=== PATIENT | female | born 1965 | race African-American/Black ===

== ENCOUNTER 2024-06-30 09:31 | Inpatient (IN) | payer MEDICARE, MEDICAID, SELFPAY ==
[2024-06-30] VITALS (13 sets, daily range): BP systolic 156–200; BP diastolic 113–141; PULSE 74–106; RESP 14–25; TEMP 36.3–36.8; O2SAT 92–98; BMI 18.8; BMI 19.0
--- NOTE | 2024-06-30 09:42 | EKG12_ITS ---
Test Reason : SOB Blood Pressure : / mmHG Vent. Rate : 084 BPM Atrial Rate : 084 BPM P-R Int : 164 ms QRS Dur : 096 ms QT Int : 418 ms P-R-T Axes : 075 -72 081 degrees QTc Int : 493 ms Normal sinus rhythm Biatrial enlargement Left axis deviation Minimal voltage criteria for LVH, may be normal variant ( Jefferson product ) Prolonged QT Abnormal ECG Confirmed by JESSICA LÓPEZ, BRENDA ([id number]), fan mail editor STAN WALL ([id number]) on 07/01/2024 1:25:24 PM Referred By: Confirmed By:BRENDA LOPEZ MD
--- NOTE | 2024-06-30 09:42 | RAD_ITS ---
STUDY: X-RAY CHEST REASON FOR EXAM: Female, 59 years old. chest pain TECHNIQUE: PA and lateral views of the chest. COMPARISON: None. FINDINGS: Hyperinflated cystic emphysematous lungs. Mild to moderate right lower lobe consolidation and a small pleural effusion is present. Old right-sided rib fractures noted. The remaining lung dangelo are clear. There is mild cardiac enlargement. Normal mediastinum and lakeisha. Normal visualized pulmonary arteries. There is atherosclerotic tortuosity of the aortic arch and descending thoracic aorta. There are diffuse degenerative changes of the visualized thoracic spine. There is no demonstrated abnormality of the visualized soft tissue structures of the upper abdomen. IVC filter partially visualized. RAD/Chest PA and Lateral IMPRESSION: 1. Right lower lobe pneumonia = Mild to moderate right lower lobe consolidation and a small pleural effusion is present. 2. This should be followed up to resolution to ensure no occult process is present. Electronically Signed: Robby Wallace MD at 11:59 EDT ,
--- NOTE | 2024-06-30 09:43 | EDS_ITS ---
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 According to EMS when they arrived found her to be hypoxic in the 78% range she is not chronically on oxygen according to them and the patient. Patient states that this morning she was complaining of shortness of breath and chest pain prompting them to come here for the valuation management. [facility] Medical History (Updated 06/30/24 @ 13:[address] Guru Roberts, DO) Schizoaffective disorder, bipolar type Difficulty walking Muscle weakness (generalized) DVT (deep venous thrombosis) Hemiplegia affecting right dominant side HTN (hypertension) COPD (chronic obstructive pulmonary disease) TIA (transient ischemic attack) Home Medications ?Medication ?Instructions ?Recorded ?Last Taken ?Type albuterol sulfate 90 mcg/actuation inhalation 06/30/24 Unknown History aerosol inhaler amlodipine 10 mg tablet 10 mg PO DAILY 06/30/24 Unknown History hydralazine 25 mg tablet 25 mg PO TID 06/30/24 Unknown History paliperidone palmitate 234 mg/1.5 mg IM 06/30/24 Unknown History mL intramuscular syringe (Invega Sustenna) rivaroxaban 20 mg tablet (Xarelto) 20 mg PO DAILY 06/30/24 Unknown History Allergy/AdvReac Type Severity Reaction Status Date / Time No Known Allergies Allergy Verified 06/30/24 09:33 Family History no significant family his Surgical History unable to obtain Social History (Updated 06/30/24 @ 09:54 by Jaleel Muse) housing: assisted living facility Smoking Status: Never smoker ROS ROS ED ROS Narrative Constitutional: Denies any headaches, lightness, dizziness, fevers, chills Eyes: Denies change in vision double vision blurry vision Cardiovascular: Complains of chest pain denies any palpitations Respiratory: Complains of shortness of breath as noted above denies coughing wheezing Abdomen: Denies abdominal pain nausea vomit diarrhea : Denies any urinary symptoms Neurological: Denies numbness, knees, tingling Musculoskeletal: Denies back pain Skin: Denies rashes or lesions EXAM Physical Exam Narrative Exam Narrative: General: Patient was lying in bed rest comfortably did not appear to be acute distress Head: Atraumatic, normocephalic Eyes: PERRL bilateral, EOMI bilateral, no conjunctival injection noted Neck: Soft, nondistended, nontender to palpation, bowel sounds present x 4 Cardiovascular: Regular in rhythm no murmurs gallops rubs noted Respiratory: Patient has diminished breath sounds bilaterally at the bases Abdomen: No tenderness palpation, soft, nondistended Extremities: No pedal edema on exam, radial pulses +2/4 in the bilateral upper extremities, patient has +4/5 strength noted in the left upper and lower extremity with +3/5 strength noted in the right upper and lower extremity from her previous stroke Neurological: Patient following commands knew that she was at a hospital the year was 2023 and we are in summer Skin: Warm, dry, intact Const Vital Signs: 06/30/24 09:33 06/30/24 09:39 06/30/24 09:41 Temperature 98.3 F 97.8 F Temperature Source Oral Oral Pulse Rate 94 98 Respiratory Rate 25 H 24 H Respiratory Effort Short of Breath Respiratory Depth Normal Respiratory Pattern Tachypnea Blood Pressure 186/126 H 186/126 H Blood Pressure Mean 146 146 Pulse Ox 94 95 Oxygen Delivery Method Nasal Cannula Nasal Cannula Nasal Cannula Oxygen Flow Rate (L/min) 3 3 3 06/30/24 09:42 06/30/24 10:38 06/30/24 11:32 Temperature Temperature Source Pulse Rate 101 H 88 Respiratory Rate 18 16 Respiratory Effort Respiratory Depth Respiratory Pattern Normal Blood Pressure 177/118 H Blood Pressure Mean 137 Pulse Ox 93 Oxygen Delivery Method Nasal Cannula Nasal Cannula Oxygen Flow Rate (L/min) 3 3 06/30/24 13:00 Temperature Temperature Source Pulse Rate 80 Respiratory Rate 24 H Respiratory Effort Respiratory Depth Respiratory Pattern Blood Pressure 178/122 H Blood Pressure Mean 140 Pulse Ox 98 Oxygen Delivery Method Nasal Cannula Oxygen Flow Rate (L/min) 3 MDM MDM MDM Narrative Medical decision making narrative: Patient is a 59-year-old female who presented to the emergency department with a chief complaint of chest pain and shortness of breath. Patient will do workup performed here on the differential diagnose includes but I limited to ACS, pneumonia, CHF, COPD exacerbation secondary viral etiology. Once workup is obtained reviewed she will be reevaluated. Will hold off on 30 cc/kg bolus of IV fluids secondary to her hypoxia and respiratory distress concern for CHF. Patient will be given DuoNebs. Patient's CBC reviewed and showed no evidence leukocytosis white blood count normal at 7.2, hemoglobin is 13.8, plate count normal at 211. Patient's blood gas was reviewed showed pH 7.35, CO2 of 36, sodium normal 141, potassium normal 3.8, creatinine normal at 0.72. Patient troponin normal at 12 with a delta troponin obtained at 8 and her EKG reviewed and showed sinus rhythm with a rate of 84 beats per minutes. Patient's proBNP normal at 28. Patient's chest x-ray was reviewed and concern for a right lower lobe pneumonia therefore she was given Rocephin and azithromycin. I did discuss results with the patient and patient Trying to rip off her oxygen which when she does this her oxygen level immediately desaturates to the upper 70s 80s. She is not normally on oxygen. Patient will be admitted to the hospital to Dr. López for further evaluation management. Patient did require Ativan and despite this she was continuing to rip off her medical devices in [place] therefore she was placed in soft restraints for her own benefit health and protection. Patient was then requiring Haldol be given. Patient states that she is agreeable with staying in the hospital however given her multiple attempts at getting up out of bed and ripping off the medical devices medical hold was placed. Nursing staff did attempt multiple times to contact her legal guardian which was unable to be contacted. Lab Data Labs: Laboratory Results - last 24 hr 06/30/24 06/30/24 09:55 13:07 WBC 7.2 RBC 4.61 Hgb 13.8 Hct 44.7 MCV 97.0 MCH 29.9 MCHC 30.9 L RDW Std Deviation 45.1 H RDW Coeff of Felipe 12.6 Plt Count 211 MPV 10.7 Immature Gran % (Auto) 0.100 Neut % (Auto) 78.5 H Lymph % (Auto) 11.2 L Emanuel % (Auto) 5.9 Eos % (Auto) 3.9 Baso % (Auto) 0.4 Absolute Neuts (auto) 5.7 Absolute Lymphs (auto) 0.81 L Nucleated RBC % 0 Sodium 141 Potassium 3.8 Chloride 105 Carbon Dioxide 36.0 H Anion Gap 0 L BUN 9 Creatinine 0.72 Estim Creat Clear Calc 75.56 Est GFR (MDRD) Af Amer 107 Est GFR (MDRD) Non-Af 88 BUN/Creatinine Ratio 12.5 Glucose 123 H Calcium 9.9 Troponin I High Sens 12 8 B-Natriuretic Peptide 28.4 ABG Data ABG results: ABG 06/30/24 10:17 Specimen Type ART Sample Site L Radial pH 7.35 Bicarbonate Actual 34.0 H Total CO2 36 Base Excess 8 H O2 Saturation 87 L O2 % 3.0 ABG pCO2 61.7 H ABG pO2 57 L Carlos A Test Positive O2 Delivery Device Cannula Vent Mode Not entered Radiography Diagnostic Testing: Clinical Impression(s) from Imaging Studies Chest X-Ray 06/30/24 09:42 IMPRESSION: 1. Right lower lobe pneumonia = Mild to moderate right lower lobe consolidation and a small pleural effusion is present. 2. This should be followed up to resolution to ensure no occult process is present. Electronically Signed: Robby Wallace MD at 11:59 EDT Reading Location ID and State: [address] [place] [address] , Service support , Discharge Plan Triage Chief Complaint: Shortness of Breath ED Provider: Guru Roberts Dx/Rx/DC Orders Clinical Impression: Pneumonia, Hypoxia Primary Care Provider: Lina Barajas Capacity Capacity Assessment Tool Patient lacks Decision Making Capacity: unable to understand, reason and deliberate health related choices: Yes Risk to self and or others?: Yes Risk of leaving the patient care unit and or hospital?: Yes Legal Technical Healthcare Consultant Define type of medical hold:: Hospital Imposed
--- NOTE | 2024-06-30 09:45 | NURSING ---
NO OLD EKGS
--- NOTE | 2024-06-30 09:51 | ED.RN ---
WHEN THIS NURSE ASKED PT IF SHE FELT SAFE AT HOME SHE APPEARED CONFUSED AND ASKED WHERE SHE LIVED. PT WAS TOLD SHE CAME FROM [facility] AND THE PT SAID I DON'T KNOW WHAT THAT IS AND I DON'T KNOW ANYTHING ABOUT ASSISTED LIVING.
[2024-06-30] MEDS: 0.9% Normal Saline (1000mL) 1,000 ML 150 ML IV (09:57)
[2024-06-30 10:03] LABS: Absolute Lymphocyte Count 0.81 X10^3/uL (0.83-4.51); Absolute Neutrophil Count 5.7 X10^3/uL (2.0-7.7); Basophil# 0.03 X10^3/uL; Basophil% 0.4 % (0-1); Eosinophil# 0.28 X10^3/uL; Eosinophils% 3.9 % (0-5); Hematocrit 44.7 % (37-47); Hemoglobin 13.8 g/dL (12.0-15.0); Lymphocyte # 0.81 X10^3/ul (0.83-4.51); Lymphocyte % 11.2 % (19-41); Mean Corp Hgb Conc 30.9 g/dL (32-36); Mean Corpuscular Hgb 29.9 pg (27.0-32.0); Mean Platelet Vol. 10.7 fl (6.2-12.0); Monocyte# 0.43 X10^3/uL; Monocyte% 5.9 % (0-10); NRBC Flagged by Analyzer 0 % (0-5); Neutrophil # 5.67 X10^3/uL (2.7-7.7); Neutrophil % 78.5 % (47-70); Platelet Count 211 K/mm3 (150-450); RBC Distribution Width CV 12.6 % (11.6-14.6); RBC Distribution Width SD 45.1 fl (35.1-43.9); Red Blood Count 4.61 M/mm3 (4.2-5.4); White Blood Count 7.2 K/mm3 (4.4-11.0)
[2024-06-30 10:21] LABS: Allen Test Positive; Base Excess 8 mmol/L (-2 to +2); Blood Gas Specimen Type ART; Mode Not entered; O2 Delivery Device Cannula; PO2 57 mmHG (75-100); SITE L Radial; SO2 87 % (95-99); Total Carbon Dioxide 36 mmol/L; pCO2 61.7 mmHg (35-45); pH 7.35 (7.35-7.45)
[2024-06-30 10:34] LABS: Anion Gap 0 (5-15); BUN 9 mg/dL (7-18); BUN/Creat Ratio 12.5 RATIO (10-20); Calcium,Total 9.9 mg/dL (8.5-10.1); Chloride 105 mmol/L (98-107); Creatinine, Serum 0.72 mg/dL (0.55-1.02); EST Glomerular Filtration Rate 88 mL/min (>60); Est Glom Filt Rate - Afr Amer 107 mL/min (>60); Estimated Creatinine Clearance 75.56 ml/min; Glucose 123 mg/dL (74-106); Potassium 3.8 mmol/L (3.5-5.1); Sodium Level 141 mmol/L (136-145); Troponin-I HS (w/2H Reflex) 12 pg/mL (3.0-54.0)
[2024-06-30] MEDS: Ipratropium/Albuterol Sulfate 3 ML AMPUL.NEB INHALATION ×3 (10:37→10:38)
[2024-06-30 10:43] LABS: BNP,B-Type NATRIURETIC PEPTIDE 28.4 pg/mL (0-100)
--- NOTE | 2024-06-30 10:43 | ED.RN ---
WHEN THIS NURSE ENTERED PT ROOM, PT OXYGEN WAS OFF AND ON THE BED. THIS NURSE BEGAN TO PUT O2 BACK ON PT AND PT STATES I WILL NOT WEAR THAT. PT REFUSING TO WEAR OXYGEN
[2024-06-30] MEDS: LORazepam 2 MG/ML Syringe 0.5 MG IV (11:23)
--- NOTE | 2024-06-30 11:57 | ED.RN ---
THIS RN ATTEMPTED TO CALL MOISÉS MELO AT 11:45 am =, i
[2024-06-30 11:59] LABS: Reflex Troponin-HS? (from REC) Y
--- NOTE | 2024-06-30 12:24 | ED.RN ---
ATTEMPTED TO CALL PT VALERIE HARVEY. NO ANSWER, NOT ABLE TO LEAVE A VOICEMAIL DUE TO FULL VOICEMAIL
[2024-06-30] MEDS: Haloperidol Lactate 5 MG/ML Vial 1 MG IV (12:29)
[2024-06-30] MEDS: Ceftriaxone 1 GM/50 ML BAG IV (12:30)
--- NOTE | 2024-06-30 12:41 | ED.RN ---
PT CONTINUES TO TRY AND TAKE HER OXYGEN AND MONITOR OFF. PT SCREAMING FOR HELP. WHEN THIS RN WALKS IN, PT AGITATED AND TRYING TO TAKE O2 OFF. PT STILL APPEARS CONFUSED, IS ORIENTED TO SELF BUT SAYS I AM FROM A DIFFERENT PLANET.
--- NOTE | 2024-06-30 13:20 | PCM.HP.STD ---
HPI - General General Date of Admission: 06/30/24 Date of Service: 06/30/24 Chief Complaint: Shortness of breath HPI Narrative ELOINA HAND, is a 59 F with history of schizoaffective disorder bipolar type, CVA, COPD, VTE, hypertension who presented to [facility] ED 06/30/2024 from [facility] unit for shortness of breath. History obtained per report as patient either unable or unwilling to discuss HPI and no family present at bedside. Reportedly patient had increased shortness of breath and cough and possible chest pain prompting her to come to the ED and was 78% on room air but it was unclear if she was on chronic O2 or not. She is found to have infiltrate on chest x-ray, raise concern for pneumonia so she was given Rocephin, azithromycin and DuoNebs. Hospitalist contacted for admission. In the interim patient was very agitated and combative and briefly required restraints and then had a as needed dose of Haldol and a as needed dose of Ativan which did help. Patient evaluated at bedside and was awake but would not answer questions. O2 sat 97% on 3 L and patient in no acute distress. Patient admitted to floor [facility] Medical History (Updated 06/30/24 @ 13:[address] Guru Roberts, DO) COPD (chronic obstructive pulmonary disease) Difficulty walking DVT (deep venous thrombosis) Hemiplegia affecting right dominant side HTN (hypertension) Muscle weakness (generalized) Schizoaffective disorder, bipolar type TIA (transient ischemic attack) Home Medications ?Medication ?Instructions ?Recorded ?Last Taken ?Type albuterol sulfate 90 mcg/actuation 2 puff inhalation TID sob 06/30/24 Unknown History aerosol inhaler amlodipine 10 mg tablet 10 mg PO DAILY bp 06/30/24 Unknown History hydralazine 25 mg tablet 25 mg PO TID bp 06/30/24 Unknown History mometasone-formoterol HFA 100 2 inh inhalation BID breathing 06/30/24 Unknown History mcg-5 mcg/actuation aerosol inhaler paliperidone palmitate 234 mg/1.5 234 mg IM Q28D schizoaffective 06/30/24 Unknown History mL intramuscular syringe (Invega disorder Sustenna) rivaroxaban 20 mg tablet (Xarelto) 20 mg PO .evening blood 06/30/24 Unknown History Allergy/AdvReac Type Severity Reaction Status Date / Time No Known Allergies Allergy Verified 06/30/24 09:33 Family History no significant family his Surgical History unable to obtain Social History (Updated 06/30/24 @ 09:54 by Jaleel Muse) housing: assisted living facility Smoking Status: Never smoker ROS ROS Narrative Unable to obtain ROS secondary to patient cooperation Vital Signs Vital Signs Vital Signs: 06/30/24 09:33 06/30/24 09:39 06/30/24 09:41 Temperature 98.3 F 97.8 F Temperature Source Oral Oral Pulse Rate 94 98 Respiratory Rate 25 H 24 H Respiratory Effort Short of Breath Respiratory Depth Normal Respiratory Pattern Tachypnea Blood Pressure 186/126 H 186/126 H Blood Pressure Mean 146 146 Pulse Ox 94 95 Oxygen Delivery Method Nasal Cannula Nasal Cannula Nasal Cannula Oxygen Flow Rate (L/min) 3 3 3 06/30/24 09:42 06/30/24 10:38 06/30/24 11:32 Temperature Temperature Source Pulse Rate 101 H 88 Respiratory Rate 18 16 Respiratory Effort Respiratory Depth Respiratory Pattern Normal Blood Pressure 177/118 H Blood Pressure Mean 137 Pulse Ox 93 Oxygen Delivery Method Nasal Cannula Nasal Cannula Oxygen Flow Rate (L/min) 3 3 06/30/24 13:00 Temperature Temperature Source Pulse Rate 80 Respiratory Rate 24 H Respiratory Effort Respiratory Depth Respiratory Pattern Blood Pressure 178/122 H Blood Pressure Mean 140 Pulse Ox 98 Oxygen Delivery Method Nasal Cannula Oxygen Flow Rate (L/min) 3 Weight Weight: 56.2 kg Body Mass Index (BMI) 18.8 Physical Exam Narrative General: Alert, but refused to answer questions HEENT: Atraumatic, normocephalic Eyes: Anicteric, normal conjunctiva, extraocular movements grossly intact Neck: Supple Respiratory: Normal respiratory effort, would not take deep breaths during exam but no overt wheezes, slightly coarse in right lower lobe Cardiovascular: Regular rate GI: Soft, nontender, nondistended Extremities: No edema Musculoskeletal: Moving extremities in bed Neuro: Did not participate in neuroexam Skin: No rashes appreciated Psych: Uncooperative Results Lab / Micro Data 06/30/24 09:55 06/30/24 09:55 Labs: Laboratory Results - last 24 hr 06/30/24 09:55: WBC 7.2, RBC 4.61, Hgb 13.8, Hct 44.7, MCV 97.0, MCH 29.9, MCHC 30.9 L, RDW Std Deviation 45.1 H, RDW Coeff of Felipe 12.6, Plt Count 211, MPV 10.7, Immature Gran % (Auto) 0.100, Neut % (Auto) 78.5 H, Lymph % (Auto) 11.2 L, [place] % (Auto) 5.9, Eos % (Auto) 3.9, Baso % (Auto) 0.4, Absolute Neuts (auto) 5.7, Absolute Lymphs (auto) 0.81 L, Nucleated RBC % 0, Sodium 141, Potassium 3.8, Chloride 105, Carbon Dioxide 36.0 H, Anion Gap 0 L, BUN 9, Creatinine 0.72, Estim Creat Clear Calc 75.56, Est GFR (MDRD) Af Amer 107, Est GFR (MDRD) Non-Af 88, BUN/Creatinine Ratio 12.5, Glucose 123 H, Calcium 9.9, Troponin I High Sens 12, B-Natriuretic Peptide 28.4 Micro: Microbiology 06/30/24 09:47 Mucosa - Nose SARS-CoV-2, Influenza & RSV (PCR) - Final ABG Data ABG results: ABG 06/30/24 10:17 Specimen Type ART Sample Site L Radial pH 7.35 Bicarbonate Actual 34.0 H Total CO2 36 Base Excess 8 H O2 Saturation 87 L O2 % 3.0 ABG pCO2 61.7 H ABG pO2 57 L Carlos A Test Positive O2 Delivery Device Cannula Vent Mode Not entered Imaging Radiology Impression Chest X-Ray 06/30/24 09:42 IMPRESSION: 1. Right lower lobe pneumonia = Mild to moderate right lower lobe consolidation and a small pleural effusion is present. 2. This should be followed up to resolution to ensure no occult process is present. Electronically Signed: Robby Wallace MD at 11:59 EDT , Assessment & Plan Assessment/Plan (1) Hypoxia: (2) Pneumonia: PLAN: Plan # Hypoxia suspect secondary to right lower lobe pneumonia on chronic COPD -No previous records available in our system, no family at bedside and patient not cooperative with questioning or exam -Unclear if patient is supposed to be on home O2 -Chest x-ray with right lower lobe pneumonia, recommends repeat imaging to assess for resolution or any other underlying process, will need to be followed up on an outpatient basis -Patient started on nebs and Rocephin and azithromycin and is presently 97% on 3 L -No wheezing, do not suspect patient needs steroids at this time, continue inhaled steroids -Urine antigens negative, COVID-negative, respiratory panel pending -Of note patient also with pCO2 of 61.7 on presenting ABG however patient's pH normal and has elevated bicarb suspect this is chronic and patient is combative and not cooperative but is alert and does not obtunded or tired or seem to have acute CO2 retention -Incentive spirometer -Mucinex # Agitation and history of reportedly schizoaffective disorder -Unclear baseline but patient of note is presently at a locked behavioral unit -Patient suspicious and agitated but is awake, not obtunded or lethargic -Is on Invega Sustenna on outpatient basis -UA WNL -Pt had pCO2 61.7 but elevated bicarb and normal pH, do not think this is acute retention causing mental status changes especially given pts level of alertness -Treat underlying respiratory process as above -Ativan prn, will avoid and redirect if possible #Hypertensive urgency -Resume home medications -Add losartan -Hydralazine PRN -May need further adjustments moving forward #Hx VTE -Continue xeralto #DVT ppx: Pari Osborn MD Time spent in the patient's overall evaluation,decision-making process, review of diagnostic data, adjustment of management, discussion with other providers, nursing nursing and ancillary staff involved in patient's care documentation, 58 minutes Charges/Coding Visit Charges Inpatient E&M: 13623 Init Hosp L2
[2024-06-30] MEDS: Azithromycin 500 MG in Dextrose 5%-Water (250mL Bag) 250 ML 250 MG IV (13:22)
[2024-06-30 13:36] LABS: Troponin-I HS 8 pg/mL (3.0-54.0)
--- NOTE | 2024-06-30 13:48 | ED.RN ---
AT 1258 PT REQUESTED RESTRAINTS TO COME OFF. PT AGREED TO KEEP OXYGEN ON AT THIS POINT.
--- NOTE | 2024-06-30 13:49 | ED.RN ---
PT PULLING AT LINES AND OXYGEN, NOT OBEYING COMMANDS. PT IS REFUSING CARE. PT PLACED BACK IN RESTRAINTS
--- NOTE | 2024-06-30 14:12 | ED.RN ---
PT REFUSING IV AND ANTIBIOTICS. PT AWARE OF MEDICAL HOLD. PT ACCUSATORY TOWARDS STAFF STATING WE DID THIS TO HER IN [place]. NEW IV INITIATED FOR ANTIBIOTICS.
--- NOTE | 2024-06-30 14:17 | ED.RN ---
THIS RN ATTEMPTED TO CALL PT'S GUARDIAN, CARLOS ELLINGTON AGAIN, NO ANSWER, UNABLE TO LEAVE A VOICEMAIL DUE TO IT BEING FULL.
--- NOTE | 2024-06-30 14:38 | CASEMGMT ---
Per SOWMYA at [facility], pt's legal guardian is her daughter and they last had contact with her 3wks ago. Patient was to discharge to community with her daughter/guardians supervision on Saturday but she did not pick her up. Pt resides in their locked behavioral unit. At , she has become obsessed with discharging and they believe she is being non-compliant with her O2 use as a way to get off the unit in hopes that she won't get sent back. Hospital , [facility], updated. SAM Romero Planning Asst.
[2024-06-30] MEDS: hydrALAZINE 25 MG Tablet PO (15:32)
[2024-06-30 15:35] LABS: Mucous, Urine 0 SEEN /hpf (<or=2+); Red Blood Cells-Urine 0 SEEN /hpf (0-5)
[2024-06-30] MEDS: hydrALAZINE 20 MG/ML Vial 5 MG IV (15:35)
[2024-06-30 15:40] LABS: Color, Urine Yellow (Yellow); Glucose, Dipstick Normal (Normal); Ketone-Dipstick Negative (Negative); Leukocyte Esterase-Dipstick Negative /ul (Negative); Nitrite-Dipstick Negative (Negative); Occult Blood-Urine Negative /ul (Negative); Protein-Dipstick Negative (Negative); Specific Gravity, Urine 1.015 (1.002-1.030); Urine Bilirubin Dipstick Negative (Negative); Urine Clarity Clear (Clear); Urine Urobilinogen Normal (Normal)
[2024-06-30 15:55] LABS: White Blood Cells 0-5 SEEN /hpf (0-5)
[2024-06-30 15:56] LABS: Bacteria RARE /hpf (None Seen); Squamous Epithelial Cells - UA 0-5 SEEN /hpf (5-10); Transitional Epithelial - Ur 0-5 SEEN /hpf (0-5)
--- NOTE | 2024-06-30 18:15 | NURSING ---
pt appears to be sleeping in bed. o2 tubing noted to be down below chin. this nurse attempted to place o2 tubing in pt nose. pt wakes-moves tubing back below chin and states leave me alone. this nurse explains why o2 is needed at this time. pt refusing to let this nurse check spo2. pt states i told you to leave me alone. will monitor.
--- NOTE | 2024-06-30 19:30 | NURSING ---
This RN went into pt's room to do an introduction and an assessment, pt awake in bed at this time. Pt sat up and told this RN that someone had told her earlier that staff would leave her alone and not bother her anymore. This RN explained to pt that staff will be in her room routinely to check on her. Pt laid back in bed and refused to answer anymore questions. This RN made sure bed alarm is on and call light is w/ pt. no further concerns at this time.
--- NOTE | 2024-06-30 20:24 | CPS ---
Patient refusing to wear oxygen and have pulse ox checked by PARENT TRAINER, RN notified
[2024-07-01 06:08] VITALS: BP 151/101; PULSE 105; RESP 18; O2SAT 92
--- NOTE | 2024-07-01 06:18 | NURSING ---
This RN attempted to talk patient into giving labs this morning. Pt IV became occluded when attempting to flush, so taken out at this time. When asked if pt would allow this RN to get another IV she refused. When asking if she would allow blood to be drawn she refused again.
[2024-07-01 07:08] VITALS: O2SAT 82
--- NOTE | 2024-07-01 07:09 | CPS ---
patient on room air, spo2 82%. She allowed this RT to put NC o2 at 2l NC but did remove on her own. Attempted to redirect patient and educate, without success.
--- NOTE | 2024-07-01 10:48 | CASEMGMT ---
Discharge Planning Updates sent to [facility] via [facility]. SAM Romero Planning Asst.
--- NOTE | 2024-07-01 11:00 | PCM.PN.HOSP ---
Reason for Visit Reason for Visit: Diagnoses Pneumonia, unspecified organism (06/30/24) Hypoxemia (06/30/24) Subjective Subjective Patient intermittently cooperative with vitals and oxygen overnight, this a.m. very resistant to any medications, vitals, exams. Was informed that patient's daughter/guardian would be coming today to see patient and for further discussion however when social work called to follow-up there was no answer and no return call. When I evaluated patient this a.m. she was sitting on the edge of the bed resting comfortably with no increased work of breathing, endorse that she did have some cough but when discussing pneumonia she was adamant that she did not have pneumonia and she was coughing because substances were being pumped into the room through the air vents in the ceilings and it was making her sick. She would not voice any other acute complaints other than some soreness which she attributes to being the ED yesterday and requiring restraints for short period of time. She remarked that she is not violent and does not need restrained, supportive care provided and agreed that she is presently not violent and that I am not attempting to or suggesting that restraints would be put on her at this time. Patient continues to reiterate that she wants to go home and said that her home is in [place], she could not tell me where she came from before this hospital became very angry and agitated before stating she came here from [facility] (she came from the behavioral unit at [facility]). While she is alert and able to answer some questions she is very suspicious and does not have an understanding of her current medical problems or the purpose of the interventions or the importance/relevance of them. Despite explaining this patient adamant that it is the hospital that is making her sick and that she does not have pneumonia and she is presently still not resistant to evaluation. Given she is not able to understand her medical problems, the risks or benefits of treatment, or appreciate the consequences of refusing treatment she does not presently have capacity at this time and medical hold will be continued. Given patient is in no acute distress or presently experiencing an acute imminently life-threatening problem and is not violent do not feel it is reasonable to sedate patient or restrain patient against her will to administer treatment. O2 sat checked in the afternoon was 93% on room air. If patient becomes hypoxic again and clinically deteriorates will need to reassess as additional measures may need to be taken to administer treatment. Presently stable. Given patient no longer has an IV her antibiotics have been switched to p.o., will encourage patient to take the p.o. medication. If patient continues to refuse to the point that it is actively and acutely negatively affecting her health and wellbeing may need to consider an IM option Objective Data Objective Data Vital Signs: Vital Signs Temp Pulse Resp BP Pulse Ox O2 Del Method O2 Flow Rate 97.3 F L 105 H 18 151/101 H 93 Room Air 2 06/30/24 21:05 07/01/24 06:08 07/01/24 06:08 07/01/24 06:08 07/01/24 16:26 07/01/24 16:26 07/01/24 06:08 Oxygen Flow Rate (L/min) 2 Oxygen Delivery Method Room Air Weight: 56.8 kg Body Mass Index (BMI) 19.0 Intake & Output: Intake and Output for Last 24 Hours 06/29/24 06/30/24 07/01/24 23:59 23:59 23:59 Intake Total 1007.5 / 1007.5 Output Total 400 / 400 Balance 607.5 / 607.5 Medical Nutrition Assessment Dietitian: Malnutrition Criteria Met Start: 07/01/24 15:51 Freq: Status: Active Protocol: Document 07/01/24 15:51 SB (Rec: 07/01/24 15:52 SB [id number]) Nutrition Malnutrition Evidence of Malnutrition Exists Yes Malnutrition (severe): Chronic Evidenced By Suboptimal Energy Intake ( Severe),Weight Loss (Severe), Physical Changes (Severe) Clinical Problem Chronic Disease or Condition Related Malnutrition Etiology severe related to inadequate oral/energy intake Signs/Symptoms as evidenced by severe wasting in clavicle and should region , PO intake meeting <50% of estimated energy needs x 1 month, recent 24.3% unintentional weight loss, and BMI 19.0. Status Active Problem Recommendation Dietitian Recommendations/Changes Continue regular diet. Will order 240ml strawberry ensure plus high protein BID with breakfast and dinner, to see if pt will be willing to consume if she sees it on try. Will order magic cup with lunch. Will monitor weight, as available. Reviewed and approved by Maddie Irwin, MS, RD, LD. Lab / Micro Data 06/30/24 09:55 06/30/24 09:55 Micro: Microbiology 06/30/24 15:25 Urine, Random Urine Culture - Preliminary Mixed Gram Positive Organisms 06/30/24 15:10 Mucosa - Nasopharyngeal Respiratory Panel (PCR) - Final 06/30/24 15:10 Mucosa - Nose Coronavirus COVID-19 PCR - Final 06/30/24 15:25 Urine, Random Legionella Antigen - Final 06/30/24 15:25 Urine, Random Streptococcus pneumoniae Antigen (M - Final 06/30/24 09:47 Mucosa - Nose SARS-CoV-2, Influenza & RSV (PCR) - Final Physical Exam Narrative General: Alert, no acute distress HEENT: Atraumatic, normocephalic Eyes: Anicteric, normal conjunctiva, extraocular movements grossly intact Neck: Supple Respiratory: Normal respiratory effort, patient refused physical exam Cardiovascular: Regular rate GI: Soft, nontender, nondistended Extremities: No edema Musculoskeletal: Moving all extremities Neuro: Has baseline deficits Skin: No rashes appreciated Psych: Suspicious and uncooperative Assessment & Plan Assessment/Plan (1) Hypoxia: (2) Pneumonia: PLAN: Plan # Hypoxia suspect secondary to right lower lobe pneumonia on chronic COPD -No previous records available in our system, no family at bedside and patient not cooperative with questioning or exam -Unclear if patient is supposed to be on home O2 -Chest x-ray with right lower lobe pneumonia, recommends repeat imaging to assess for resolution or any other underlying process, will need to be followed up on an outpatient basis -Patient started on nebs and Rocephin and azithromycin and is presently 97% on 3 L -No wheezing, do not suspect patient needs steroids at this time, continue inhaled steroids -Urine antigens negative, COVID-negative, respiratory panel pending -Of note patient also with pCO2 of 61.7 on presenting ABG however patient's pH normal and has elevated bicarb suspect this is chronic and patient is combative and not cooperative but is alert and does not obtunded or tired or seem to have acute CO2 retention -Incentive spirometer -Mucinex -07/01: Antibiotics switched to p.o. as patient refusing to have another IV placed, will encourage patient to take the p.o. antibiotics, oxygen check this afternoon showed an O2 sat of 93% on room air. See subjective for additional information. # Agitation and history of reportedly schizoaffective disorder -Unclear baseline but patient of note is presently at a locked behavioral unit -Patient suspicious and agitated but is awake, not obtunded or lethargic -Is on Invega Sustenna on outpatient basis -UA WNL -Pt had pCO2 61.7 but elevated bicarb and normal pH, do not think this is acute retention causing mental status changes especially given pts level of alertness -Treat underlying respiratory process as above -Ativan prn, will avoid and redirect if possible -07/01: Patient verbally combative and uncooperative however not presently violent, continue supportive care, unclear baseline, guardian was supposed to come in for discussion and to see patient but has not yet come and phone call was not answered and call not returned. If patient becomes medically stable will need to go back to the behavioral unit, maybe as soon as tomorrow. #Hypertensive urgency -Resume home medications -Add losartan -Hydralazine PRN -May need further adjustments moving forward -07/01: Patient not presently letting us check blood pressure, continue to gently encourage this and offer the p.o. medication, patient much less agitated outwardly today so BP may be lower than it was during acute agitation in the ED #Hx VTE -Continue xeralto #DVT ppx: Pari Osborn MD Time spent in the patient's overall evaluation,decision-making process, review of diagnostic data, adjustment of management, discussion with other providers, nursing nursing and ancillary staff involved in patient's care documentation, 45 minutes Charges/Coding Visit Charges Inpatient E&M: 67168 Subs Hosp L2
--- NOTE | 2024-07-01 12:46 | CASEMGMT ---
Patient's daughter/guardian Bettina called [facility] last night per the RN. Bettina plans on coming in today. will talk with Bettina to discuss d/c plan. Adriana LENZ
--- NOTE | 2024-07-01 13:41 | CASEMGMT ---
SOWMYA called patient's daughter/legal guardian Bettina and left her a voice mail requesting a return phone call. Adriana LENZ
[2024-07-01 16:26] VITALS: O2SAT 93
--- NOTE | 2024-07-01 16:33 | NURSING ---
Patient refusing focused assessment by this RN. Patient also refusing vitals. Pt did allow RN to obtain pulse ox, was 93% on room air. Patient continues to refuse all medications, as she states she does not have high blood pressure or pneumonia. notified.
--- NOTE | 2024-07-01 19:00 | NURSING ---
Emergency documentation now in effect, 07/01/24 @1010
[2024-07-01 19:10] VITALS: O2SAT 90
--- NOTE | 2024-07-02 02:00 | NURSING ---
RN introduced self, pt ignores RN, refused care/assistance.
--- NOTE | 2024-07-02 04:28 | NURSING ---
Pt refused blood pressure check, pulse 0x 88% on RA, pt refused to wear NC. RR 19, chest rise equal, no sob.
[2024-07-02 04:30] VITALS: PULSE 88; TEMP 36.6; O2SAT 88
[2024-07-02] MEDS: Amox/Clavulanate 875 MG Tablet PO (05:09)
[2024-07-02 05:11] VITALS: PULSE 81; O2SAT 97
--- NOTE | 2024-07-02 05:12 | NURSING ---
pt called out asking for her antibiotic, RN gave 1 tablet of PO Augmentin 875mg early per pt request. Refused other meds. Pt allowed RN to place 2L NC on, 02 sats 97% HR 81. Refused bp check.
[2024-07-02 07:49] VITALS: O2SAT 95
[2024-07-02 08:55] VITALS: BP 144/99; PULSE 89; RESP 18; TEMP 36.4; O2SAT 94
--- NOTE | 2024-07-02 09:19 | CASEMGMT ---
SW attempted to call patient's daughter Bettina. However, it went right to voice mail and the voice mail box is full. [facility]. The first time it went to a random voice mail with no identifying information, second time after 3rd ring there was static and then nothing, and the 3rd attempt phone rang a few times and then nothing. SW will try and talk with RN to see if he has heard anything from patient's daughter. SW will also notify physician that if patient is medically ready she can be discharged back to [facility]. SW will continue to try and reach patient's daughter Bettina as well as [facility]. Adriana Meyers STATIONARY EQUIPMENT MECHANIC DELFIN
--- NOTE | 2024-07-02 09:46 | CASEMGMT ---
SOWMYA called [facility] ([phone]) and asked to talk with someone regarding a guardian that cannot be reached. SW was transferred and went to a voice mail for a Sarah Randolph court field traffic investigator. SOWMYA left Sarah a voice mail requesting a return call regarding a patient who has a guardian that the senior living and hospital have not been able to reach (no identifying information was given). Await return call. SOWMYA also updated physician that patient if medically ready [facility]. SOWMYA also notified [facility] that patient will likely return today. Adriana Meyers SECONDARY SCHOOL SPECIAL ED TEACHER DELFIN
--- NOTE | 2024-07-02 10:13 | CASEMGMT ---
SOWMYA received a phone call from Sarah Randolph with [facility] [address] [facility]. SOWMYA explained situation and gave her patient's name. Sarah gave SOWMYA the address and contact information they have for Bettina. Which turns out to be different than what SOWMYA has. [facility] has [phone] for a phone number and address they have is [address] SOWMYA also told Sarah that SOWMYA wanted to make sure they were aware of the difficulty the fci and hospital have had reaching Bettina. Sarah told SOWMYA if SOWMYA is not able to reach Bettina via this new number and Bettina never gets back to SOWMYA to give her a call and let her know. SOWMYA will also pass along Sarah's information to [facility]. SOWMYA called [phone]. Phone rang several times then went to a voice mail with no identifying information. SOWMYA left a message indicating message is for Bettina and to please call SOWMYA back. SOWMYA did not leave any patient identifying information on the message. It should also be known that the phone number SOWMYA had originally ([phone]) called does identify it is Bettina's phone. Adriana Meyers YARN TEXTURING MACHINE OPERATOR SPIKEMAKING SUPERVISOR
--- NOTE | 2024-07-02 13:02 | PCM.TXEXTCAR ---
Diet Diet Order/Speech Therapy: 06/30/24 14:36 Diet: Regular - General Food consistency:: Regular Liquid Consistency:: Regular/Thin Type of Dietary Supplement:: Magic Cup w/ lunch Diet Comments: 240mL ensure plus HP strawberry w/ breakfast and dinner Routine Orders/Code Status Suppository Type: Dulcolax 10mg Suppository Frequency: Daily PRN O2 Liters per Minute: 2 O2 Frequency: PRN Problem/Diagnosis (1) Hypoxia: Status: Acute Code(s): R09.02 - Hypoxemia (2) Pneumonia: Status: Acute Code(s): J18.9 - Pneumonia, unspecified organism Plan # Hypoxia suspect secondary to right lower lobe pneumonia on chronic COPD # Agitation and history of reportedly schizoaffective disorder #Hypertensive urgency #Hx VTE ELOINA HAND, is a 59 F with history of schizoaffective disorder bipolar type, CVA, COPD, VTE, hypertension who presented to [facility] ED 06/30/2024 from [facility] for shortness of breath. She had an infiltrate on chest x-ray and was found to be hypoxic and was started on IV antibiotics and O2. Patient became very irritable and agitated and deemed not to have capacity (see documentation) and required temporary restraints. Patient very suspicious and unwilling to answer my questions so history obtained per report patient was patient was at [facility] and had shortness of breath and was brought to the ED. On the floor patient improved, ultimately IV came out and she refused for it to be replaced so antibiotics were changed to oral, patient then refused to wear her O2 but shortness of breath improved and oxygen sats were improving and she required 2 L as needed. Patient remains suspicious and does not have capacity (see documentation) but required no further medication for agitation or restraints, guardian initially called and said she was going to come in to see patient however she did not come to the hospital and subsequent attempts to contact her were unsuccessful. Patient overall improved and on day of discharge reported still some cough but improving shortness of breath. Patient not in acute distress. Plan is for patient to go back to [facility] on Augmentin and as needed O2. Allergies/Procedures Done in Hospital Allergies No Known Allergies Allergy (Verified 06/30/24 09:33) Type of Care/Length of Stay Estimated LOS: Convalescent Care Less Than 30 days Type of Care Needed: Intermediate Rehab Potential: Fair Prognosis: Fair Additional Orders/Day of Discharge Day of Discharge: 07/02/24 Dietary and Speech Recommendations Dietitian Recommendations/Changes: Continue regular diet. Will order 240ml strawberry ensure plus high protein BID with breakfast and dinner, to see if pt will be willing to consume if she sees it on try. Will order magic cup with lunch. Will monitor weight, as available. Reviewed and approved by Maddie Irwin MS, RD, LD. Discharge Plan Admission Admit Date/Time: 06/30/24 13:20 Primary Reason for Your Visit: Shortness of breath Attending Provider: Florecita Osborn Primary Care Provider: Lina Barajas Instructions Patient Instructions: ED Pneumonia (Adult) Discharge Orders/Prescriptions Prescriptions: New losartan 25 mg Tablet 25 mg PO DAILY 30 Days Qty: 30 0RF amoxicillin-pot clavulanate 875-125 mg Tablet 1 tab PO BIDCM 5 Days Qty: 10 0RF Continued hydralazine 25 mg tablet 25 mg PO TID amlodipine 10 mg tablet 10 mg PO DAILY albuterol sulfate 90 mcg/actuation HFA aerosol inhaler 2 puff inhalation TID Invega Sustenna 234 mg/1.5 mL syringe 234 mg IM Q28D Patient Comments: start date 06/02/24 Xarelto 20 mg tablet 20 mg PO .evening mometasone-formoterol 100-5 mcg/actuation HFA aerosol inhaler 2 inh inhalation BID Referrals / Follow Up: Lina Barajas MD [Primary Care Provider] - Within 1 Week Disposition Disposition (needs filled in before D/C Order can be placed): NonSkilled NH/Intermed Care
--- NOTE | 2024-07-02 13:19 | DS.PCM_ITS ---
Providers Date of Admission: 06/30/24 Date of Discharge: 07/02/24 Primary Care Physician: Dr. Lina Barajas MD Reason For Visit: PNEUMONIA, HYPOXIA Diagnosis Discharge Diagnosis (1) Hypoxia: Status: Acute Code(s): R09.02 - Hypoxemia (2) Pneumonia: Status: Acute Code(s): J18.9 - Pneumonia, unspecified organism Plan # Hypoxia suspect secondary to right lower lobe pneumonia on chronic COPD # Agitation and history of reportedly schizoaffective disorder #Hypertensive urgency #Hx VTE Medications at Discharge Home Medications albuterol sulfate 90 mcg/actuation aerosol inhaler 2 puff inhalation TID sob 06/30/24 amlodipine 10 mg tablet 10 mg PO DAILY bp 06/30/24 hydralazine 25 mg tablet 25 mg PO TID bp 06/30/24 mometasone-formoterol HFA 100 mcg-5 mcg/actuation aerosol inhaler 2 inh inhalation BID breathing 06/30/24 paliperidone palmitate 234 mg/1.5 mL intramuscular syringe (Invega Sustenna) 234 mg IM Q28D schizoaffective disorder 06/30/24 rivaroxaban 20 mg tablet (Xarelto) 20 mg PO .evening blood 06/30/24 amoxicillin 875 mg-potassium clavulanate 125 mg tablet 1 tab PO BIDCM 5 days #10 tabs 07/02/24 losartan 25 mg tablet 25 mg PO DAILY 30 days #30 tabs 07/02/24 Hospital Course Summary of Care Provided Minutes Spent on Discharge: 35 Hospital Course: ELOINA HAND, is a 59 F with history of schizoaffective disorder bipolar type, CVA, COPD, VTE, hypertension who presented to [facility] ED 06/30/2024 from [facility] behavioral unit for shortness of breath. She had an infiltrate on chest x-ray and was found to be hypoxic and was started on IV antibiotics and O2. Patient became very irritable and agitated and deemed not to have capacity (see documentation) and required temporary restraints. Patient very suspicious and unwilling to answer my questions so history obtained per report patient was patient was at [facility] and had shortness of breath and was brought to the ED. On the floor patient improved, ultimately IV came out and she refused for it to be replaced so antibiotics were changed to oral, patient then refused to wear her O2 but shortness of breath improved and oxygen sats were improving and she required 2 L as needed. Patient remains suspicious and does not have capacity (see documentation) but required no further medication for agitation or restraints, guardian initially called and said she was going to come in to see patient however she did not come to the hospital and subsequent attempts to contact her were unsuccessful. Patient overall improved and on day of discharge reported still some cough but improving shortness of breath. Patient not in acute distress. Plan is for patient to go back to [facility] on Augmentin and as needed O2. Physical Exam Narrative General: Alert, no acute distress HEENT: Atraumatic, normocephalic Eyes: Anicteric, normal conjunctiva, extraocular movements grossly intact Neck: Supple Respiratory: Normal respiratory effort, would not take deep inspirations on auscultation but no significant wheezes or rhonchi Cardiovascular: Regular rate GI: Soft, nontender, nondistended Extremities: No edema Musculoskeletal: Moving all extremities Neuro: No overt focal neurological deficits Skin: No rashes appreciated Psych: Suspicious, only intermittently cooperative Medical Records Data Medical Nutrition Assessment Dietitian: Malnutrition Criteria Met Start: 07/01/24 15:51 Freq: Status: Active Protocol: Document 07/01/24 15:51 SB (Rec: 07/01/24 15:52 SB [id number]) Nutrition Malnutrition Evidence of Malnutrition Exists Yes Malnutrition (severe): Chronic Evidenced By Suboptimal Energy Intake ( Severe),Weight Loss (Severe), Physical Changes (Severe) Clinical Problem Chronic Disease or Condition Related Malnutrition Etiology severe related to inadequate oral/energy intake Signs/Symptoms as evidenced by severe wasting in clavicle and should region , PO intake meeting <50% of estimated energy needs x 1 month, recent 24.3% unintentional weight loss, and BMI 19.0. Status Active Problem Recommendation Dietitian Recommendations/Changes Continue regular diet. Will order 240ml strawberry ensure plus high protein BID with breakfast and dinner, to see if pt will be willing to consume if she sees it on try. Will order magic cup with lunch. Will monitor weight, as available. Reviewed and approved by Maddie Irwin, MS, RD, LD. Weight / BMI Weight Weight: 56.8 kg Body Mass Index (BMI) 19.0 ABG / Lab / Microbiology Data 06/30/24 09:55 06/30/24 09:55 Microbiology: Microbiology 06/30/24 15:25 Urine, Random Urine Culture - Final Mixed Gram Positive Organisms 06/30/24 15:10 Mucosa - Nasopharyngeal Respiratory Panel (PCR) - Final 06/30/24 15:10 Mucosa - Nose Coronavirus COVID-19 PCR - Final 06/30/24 15:25 Urine, Random Legionella Antigen - Final 06/30/24 15:25 Urine, Random Streptococcus pneumoniae Antigen (M - Final 06/30/24 09:47 Mucosa - Nose SARS-CoV-2, Influenza & RSV (PCR) - Final Meaningful Use Info Meaningful Use Meaningful Use Diagnoses (Choose all that apply): None applicable Ischemic Stroke Statin Dosing Therapy Reference: STATIN DOSE THERAPY REFERENCE: * Patients > 75 years receive moderate or high dose statin therapy. * Patients 75 years or YOUNGER should receive HIGH intensity statin dose unless contraindicated. You will be required to document reason for non-treatment if statin daily dose does not meet guidelines. HIGH DOSE STATIN THERAPY DAILY Atorvastatin > than or = to 40 mg Rosuvastatin > than or = to 20 mg Amlodipine + Atorvastatin > than or = to 2.5/40 mg Ezetimibe + Simvastatin 10/80 mg Simvastatin 80mg Discharge Plan Admission Admit Date/Time: 06/30/24 13:20 Primary Reason for Your Visit: Shortness of breath Attending Provider: Florecita Osborn Primary Care Provider: Lina Barajas Instructions Patient Instructions: ED Pneumonia (Adult) Discharge Orders/Prescriptions Prescriptions: New losartan 25 mg Tablet 25 mg PO DAILY 30 Days Qty: 30 0RF amoxicillin-pot clavulanate 875-125 mg Tablet 1 tab PO BIDCM 5 Days Qty: 10 0RF Continued hydralazine 25 mg tablet 25 mg PO TID amlodipine 10 mg tablet 10 mg PO DAILY albuterol sulfate 90 mcg/actuation HFA aerosol inhaler 2 puff inhalation TID Invega Sustenna 234 mg/1.5 mL syringe 234 mg IM Q28D Patient Comments: start date 06/02/24 Xarelto 20 mg tablet 20 mg PO .evening mometasone-formoterol 100-5 mcg/actuation HFA aerosol inhaler 2 inh inhalation BID Referrals / Follow Up: Lina Barajas MD [Primary Care Provider] - Within 1 Week Disposition Disposition (needs filled in before D/C Order can be placed): NonSkilled NH/Intermed Care Charges/Coding Visit Charges Inpatient E&M: 98584 Disch Hosp >30min
--- NOTE | 2024-07-02 14:13 | CASEMGMT ---
Discharge Planning Discharge orders, signed med list, and transport time sent to [facility] via [facility]. Cot transport was scheduled with [facility] for 2:40p. Nursing and SW updated. Attempted to contact pts guardian but her vm was full. Vicky Latif DC Planning Asst.
[2024-07-02 14:14] VITALS: BP 144/99; PULSE 89; RESP 18; TEMP 36.4; O2SAT 94
--- NOTE | 2024-07-02 14:23 | NURSING ---
Report called to nurse Lopez for pt to be d/c back to [facility].
--- NOTE | 2024-07-02 15:08 | CASEMGMT ---
SOWMYA called Sarah [address] dry cleaner helper at [facility] and left her a voice mail letting her know [facility] never did hear back from patient's daughter. SOWMYA also passed along Sarah's information to [employer] and encouraged them to call if they continue to have issues reaching patient's daughter. Adriana Meyers DESIZING MACHINE OPERATOR DELFIN
== END 2024-07-02 14:42 | DRG 193 ==
LOC: ED 11:57 → PCU 13:29
PROVIDERS: Admitting Provider Internal Medicine; Emergency Provider Emergency Medicine; PCP Internal Medicine; Visit Provider Internal Medicine
DX: J18.9 Pneumonia, unspecified organism (principal); E43 Unspecified severe protein-calorie malnutrition; J44.0 Chronic obstructive pulmonary disease with (acute) lower respiratory infection; Z68.1 Body mass index [BMI] 19.9 or less, adult; F25.0 Schizoaffective disorder, bipolar type; I10 Essential (primary) hypertension; I16.0 Hypertensive urgency; R09.02 Hypoxemia; R45.1 Restlessness and agitation; Z79.01 Long term (current) use of anticoagulants; Z79.51 Long term (current) use of inhaled steroids; Z79.899 Other long term (current) drug therapy; Z86.718 Personal history of other venous thrombosis and embolism
CPT/HCPCS: 36600; 71046; 80048; 81001; 82803; 83880; 84484; 85025; 87086; 87088; 87449; 87631; 87633; 87635; 93005; 94640; 97162; 97166; 97802; 99285; J7030; A4216

== ENCOUNTER 2024-07-03 05:26 | Emergency (ER) | payer MEDICARE, MEDICAID, SELFPAY ==
[2024-07-03] VITALS (10 sets, daily range): BP systolic 161–196; BP diastolic 99–129; PULSE 70–99; RESP 14–26; TEMP 36.3–36.6; O2SAT 75–98; BMI 18.4
--- NOTE | 2024-07-03 05:49 | RAD_ITS ---
INDICATION: COUGH, SOB EXAMINATION/TECHNIQUE: X-RAY - XR Chest 1 View AP portable. 6:30 AM COMPARISON: 06/30/2024 FINDINGS: LINES/DEVICES: None. LUNGS: Tenting of the right hemidiaphragm with likely right pleural effusion unchanged. Associated opacity at the right lung base is slightly decreased. No pneumothorax. MEDIASTINUM: Aorta is tortuous and atherosclerotic. CARDIAC SILHOUETTE: Not enlarged. BONES AND SOFT TISSUES: No acute abnormalities. RAD/Chest 1 View (Portable) IMPRESSION: Continued presumed right pleural effusion and slightly decreased right basilar consolidation. Radiographic follow-up recommended in 3-4 weeks to confirm complete resolution. Alternatively, CT chest may be helpful to exclude underlying abnormality. Electronically Signed: Naheed Bonilla MD at 7:56 EDT ,
[2024-07-03] MEDS: Ipratropium/Albuterol Sulfate 3 ML AMPUL.NEB INHALATION (05:50)
--- NOTE | 2024-07-03 05:50 | ED.VIS.DYS ---
HPI History of Present Illness Chief Complaint: Shortness of Breath Informant: patient and EMS Narrative Narrative: Patient is a 59-year-old female with history of bipolar schizoaffective disorder, hypertension, COPD and recent mission for pneumonia presenting for worsening shortness of breath. [facility] She reportedly has been refusing medications but is complaining of increased shortness of breath. She is refusing to wear oxygen. She was hypoxic at the facility. EMS was called. Patient tells me that she is feeling short of breath and that she has chest tightness. Chart review shows that patient was admitted from 06/30 to 07/02 for hypoxia secondary right lower lobe pneumonia and on chronic COPD. Patient required sedation and restraints that she was refusing a lot of care. She slowly improved however continued 2 L of oxygen. She was discharged on Augmentin. [facility] Medical History Schizoaffective disorder, bipolar type Difficulty walking Muscle weakness (generalized) DVT (deep venous thrombosis) Hemiplegia affecting right dominant side HTN (hypertension) COPD (chronic obstructive pulmonary disease) TIA (transient ischemic attack) Home Medications ?Medication ?Instructions ?Recorded ?Last Taken ?Type albuterol sulfate 90 mcg/actuation 2 puff inhalation TID sob 06/30/24 Unknown History aerosol inhaler amlodipine 10 mg tablet 10 mg PO DAILY bp 06/30/24 Unknown History hydralazine 25 mg tablet 25 mg PO TID bp 06/30/24 Unknown History mometasone-formoterol HFA 100 2 inh inhalation BID breathing 06/30/24 Unknown History mcg-5 mcg/actuation aerosol inhaler paliperidone palmitate 234 mg/1.5 234 mg IM Q28D schizoaffective 06/30/24 Unknown History mL intramuscular syringe (Invega disorder Sustenna) rivaroxaban 20 mg tablet (Xarelto) 20 mg PO .evening blood 06/30/24 Unknown History amoxicillin 875 mg-potassium 1 tab PO BIDCM 5 days #10 tabs 07/02/24 Unknown Rx clavulanate 125 mg tablet albuterol sulfate 90 mcg/actuation 2 inh inhalation Q8H PRN shortness 07/03/24 Unknown History aerosol inhaler (Proventil HFA) of breath or wheezing Allergy/AdvReac Type Severity Reaction Status Date / Time No Known Allergies Allergy Verified 07/03/24 05:28 Social History housing: assisted living facility Smoking Status: Never smoker ROS ROS ED Review of Systems ROS Unobtainable: due to mental condition Respiratory/Chest Respiratory/Chest: Reports cough and dyspnea EXAM Physical Exam Const Vital Signs: 07/03/24 05:28 07/03/24 05:28 07/03/24 05:36 Temperature 97.8 F 97.8 F Temperature Source Temporal Temporal Pulse Rate 99 78 Respiratory Rate 18 18 Respiratory Effort Respiratory Pattern Blood Pressure 196/129 H 196/129 H Blood Pressure Mean 151 151 Pulse Ox 75 93 94 Oxygen Delivery Method Room Air Nasal Cannula Nasal Cannula Oxygen Flow Rate (L/min) 2 2 07/03/24 05:36 07/03/24 05:50 07/03/24 06:36 Temperature 97.4 F L Temperature Source Temporal Pulse Rate 76 70 Respiratory Rate 26 H 23 H Respiratory Effort Short of Breath Labored Respiratory Pattern Normal Tachypnea Blood Pressure 188/125 H Blood Pressure Mean 146 Pulse Ox 97 Oxygen Delivery Method Nasal Cannula Nasal Cannula Oxygen Flow Rate (L/min) 2 2 Positive well developed Constitutional Narrative: Thin General Appearance ED: well developed and NAD HEENT Reports moist mucous membranes Eyes PERRL and EOMs intact bilaterally Neck supple, no meningeal signs and no JVD Resp normal respiratory effort Resp Narrative: Diffuse crackles at the bases and on the upper lung on the left. Diminished breath sounds. No wheezing appreciated. Auscultation: Negative for wheezes Cardio regular rate, regular rhythm and no murmurs GI non-distended Extremity General Extremety ED: Negative for edema General Extremity: Negative for edema Neuro Sensorium / Orientation: alert, oriented to person and oriented to place Motor Exam: Negative for general weakness Psych Psych Narrative: Patient has a flat affect but at this time is calm and cooperative. Skin no wounds Rashes: no rashes MDM MDM MDM Narrative Medical decision making narrative: Patient's evaluated for increased hypoxia at nursing facility. Per report patient is refusing her antibiotics and oxygen. Here patient is hypoxic on room air however she goes up to 95% on 2 L. She is cooperative here and is given a DuoNeb with improvement of her breath sounds. Will recheck a chest x-ray. Given that patient is back to her baseline O2 requirements, is afebrile and has a normal heart rate I do not necessarily think she needs readmitted especially if her main issue is just noncompliance. Chest x-ray viewed by myself does not show any worsening pneumonia or other acute process. Patient is now 97% on 2 L. Will be given her morning blood pressure medicine (hydralazine and amlodipine) as well as a dose of antibiotics prior to discharge back. Discharge Plan Triage Chief Complaint: Shortness of Breath ED Provider: Nadiya Berkowitz Dx/Rx/DC Orders Clinical Impression: Hypoxia, Noncompliance with medication regimen, Hypertension Instructions: ED Dyspnea, ED Hypertension, Established Prescriptions: No Action hydralazine 25 mg tablet 25 mg PO TID amlodipine 10 mg tablet 10 mg PO DAILY albuterol sulfate 90 mcg/actuation HFA aerosol inhaler 2 puff inhalation TID Invega Sustenna 234 mg/1.5 mL syringe 234 mg IM Q28D Patient Comments: start date 06/02/24 Xarelto 20 mg tablet 20 mg PO .evening mometasone-formoterol 100-5 mcg/actuation HFA aerosol inhaler 2 inh inhalation BID amoxicillin-pot clavulanate 875-125 mg Tablet 1 tab PO BIDCM 5 Days Qty: 10 0RF albuterol sulfate [Proventil HFA] 90 mcg/actuation HFA aerosol inhaler 2 inh inhalation Q8H PRN (Reason: shortness of breath or wheezing) Primary Care Provider: Lina Barajas Referrals: Lina Barajas MD [Primary Care Provider] - Activity Restrictions/Additional Instructions: Paulette took her antibiotics, her morning BP meds and her breathing treatment. On 2 L of Ox she now has a normal O2 saturation. Chest x-rays not show any acute worsening. Do not think she needs to be readmitted to the hospital as she seems to be in the same states she was discharged. Please continue follow-up with her primary care doctor and encouraged her to take her medications. Print Language: Yemeni Disposition Disposition: Senior Living Facility Discharge Location: [facility]
[2024-07-03] MEDS: amLODIPine 10 MG Tablet PO (07:16)
[2024-07-03] MEDS: Amox/Clavulanate 875 MG Tablet PO (07:16)
[2024-07-03] MEDS: hydrALAZINE 25 MG Tablet PO (07:16)
== END 2024-07-03 11:59 | disposition skilled nursing facility (03) ==
PROVIDERS: Emergency Provider Emergency Medicine; PCP Internal Medicine; Visit Provider Emergency Medicine
DX: R09.02 Hypoxemia (principal); F25.0 Schizoaffective disorder, bipolar type; J44.9 Chronic obstructive pulmonary disease, unspecified; I10 Essential (primary) hypertension; Z91.148 Patient's other noncompliance with medication regimen for other reason; Z79.899 Other long term (current) drug therapy
CPT/HCPCS: 71045; 94640; 99283